=== PATIENT | female | born 1980 | race Caucasian/White ===

== ENCOUNTER → 2022-07-19 15:41 | Outpatient (CLI) | payer OTHER, SELFPAY ==
--- NOTE | ~2022-07-19 | MM_ITS ---
EXAMINATION: MM screening anamika BI w kimmy HISTORY: Screening mammogram TECHNIQUE: Craniocaudal and mediolateral oblique 3-D tomosynthesis images were obtained and synthetic 2-D images were generated. CAD analysis was submitted and interpreted. COMPARISON: bilateral screening mammogram examinations BREAST PARENCHYMAL COMPOSITION: The breasts are extremely dense, which lowers the sensitivity of mamm ography. FINDINGS: There is no evidence of suspicious mass, calcification, or architectural distortion to sugg est malignancy in either breast. There has been no suspicious interval change. IMPRESSION: 1. No mammographic evidence of malignancy. 2. Recommend routine screening mammography in one year. BI-RADS Category 1: Negative Reviewed, dictated and finalized at location A. 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
== END ==
PROVIDERS: PCP Obstetrics & Gynecology; Visit Provider Obstetrics & Gynecology
DX: Z12.31 Encounter for screening mammogram for malignant neoplasm of breast (principal)
CPT/HCPCS: 77063; 77067

== ENCOUNTER 2023-04-27 10:17 | Emergency (ER) | payer OTHER, SELFPAY ==
[2023-04-27 10:30] VITALS: BP 130/93; PULSE 66; RESP 16; TEMP 36.6; O2SAT 100
--- NOTE | 2023-04-27 10:30 | ED.URI ---
HPI - URI/Sore Throat General Chief Complaint: Upper Respiratory Infection Stated Complaint: COUGH/RIB PAIN Time Seen by Provider: 04/27/23 10:31 Source: patient Mode of arrival: ambulatory Limitations: no limitations History of Present Illness HPI Narrative: 42-year-old female presented for complaint of cough for 1 month. Now with left lower rib pain with coughing or deep breath. Denies sob, wheezing, n/v/d/f/c. Not taking anything for symptoms. Related Data Home Medications Medication Instructions Recorded Confirmed atorvastatin 10 mg tablet 10 mg PO DAILY 02/19/23 04/27/23 buspirone 10 mg tablet 10 mg PO BID 02/19/23 04/27/23 escitalopram oxalate 20 mg tablet 20 mg PO DAILY 02/19/23 04/27/23 metoprolol tartrate 50 mg tablet 50 mg PO BID 02/19/23 04/27/23 Allergies Allergy/AdvReac Type Severity Reaction Status Date / Time Sulfa (Sulfonamide Allergy Mild Itching Verified 04/27/23 10:36 Antibiotics) acetaminophen Allergy Unknown Itching Verified 04/27/23 10:36 oxycodone Allergy Unknown Itching Verified 04/27/23 10:36 Review of Systems Review of Systems: CONSTITUTIONAL: Denies body aches, fever, chills, or sweats. EYES: Denies visual changes, redness, or discharge. ENT: Denies rhinorrhea, congestion, sore throat, or otalgia. CARDIOVASCULAR: Denies chest pain, palpitations, or edema. RESPIRATORY: Reports cough, denies sob, wheezing. GASTROINTESTINAL: Denies abdominal pain, nausea, vomiting, or diarrhea. GENITOURINARY: Denies dysuria or hematuria. SKIN: Denies rash, itching, or wounds. MUSCULOSKELETAL: Denies back pain, joint pain, or myalgia. NEUROLOGIC: Denies headache, numbness, tingling, or weakness. All systems reviewed & are unremarkable except as noted in HPI and below PMFSH Past Medical History Medical History Abnormal Pap smear of cervix 01/20/12 ascus hpv neg Endometriosis History of hysterosalpingogram (01/25/12) occluded left tube History of in vitro fertilization Hypercholesteremia Hypertension Infertility x2 Screening mammogram, encounter for Surgical History Surgical History History of dilation and curettage 08/22/03 hscope d&c/laparotomy/LSO--endometriosis, large lt ovarian mass History of laparotomy 08/22/03 hscope d&c/laparotomy/LSO--endometriosis, large lt ovarian mass History of left salpingo-oophorectomy 08/22/03 hscope d&c/laparotomy/LSO--endometriosis, large lt ovarian mass History of ovarian cystectomy (09/25/12) RA lscope rt ovarian cystectomy/chromopertubation--endometriosis, endosalpingiosis, mesothelial hyperplasia, hemorrhagic corpus luteum cyst Family History Family History Mother Breast cancer Grandparent Breast cancer maternal grandmother Osteoporosis maternal grandmother Father Malignant tumor of urinary bladder Social History Social History Smoking status: Never smoker Second hand tobacco smoke exposure: No Alcohol intake: current Drinks per week: 2 Substance use: never Substance use type: does not use Lack of Transportation: No Lack of Food: Never True Current Housing: I Have Housing Concerned About Future Housing: No Difficulty Paying Gas/Electric Bills: No Difficulty Paying for Meds: No Currently Unemployed: No Education: Master's Degree or Higher Difficulty w/ Childcare or Family Care: No Living arrangements: other Additional living arrangements comments: Occupation/Education: occupation 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
== END 2023-04-27 10:50 | disposition home or self-care (01) ==
PROVIDERS: Emergency Provider Nurse Practitioner Family; PCP Family Medicine
DX: J40 Bronchitis, not specified as acute or chronic (principal); R07.81 Pleurodynia; N80.9 Endometriosis, unspecified; E78.00 Pure hypercholesterolemia, unspecified; I10 Essential (primary) hypertension
CPT/HCPCS: 99213; G0463

== ENCOUNTER 2023-05-14 17:04 | Emergency (ER) | payer OTHER, SELFPAY ==
--- NOTE | ~2023-05-14 | XR_ITS ---
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 RESULT: Lines, tubes, and devices: None. Lungs and pleura: Clear. Cardiomediastinal silhouette: Stable. Other: No acute osseous or upper abdominal finding. IMPRESSION: No acute cardiopulmonary process. Reviewed, dictated and finalized at location K. 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
[2023-05-14 17:11] VITALS: BP 127/85; PULSE 69; RESP 16; TEMP 36.9; O2SAT 99
--- NOTE | 2023-05-14 17:52 | ED.GENADULT ---
HPI - General Adult General Chief complaint: Upper Respiratory Infection Stated complaint: Cough Source: patient Mode of arrival: ambulatory Limitations: no limitations History of Present Illness HPI narrative: Patient presents for evaluation of cough. She was evaluated here on 04/27/2023 for a cough that had been there for a month prior to presentation. She was given prescriptions for Augmentin, prednisone, and Tessalon Perles. None of the medications seem to help. She reports persistence of her symptoms since that time. During some of her coughing episodes she feels short of breath. Her informed her that her cough has a seal-like quality to it. She denies any fever, chills, sore throat, otalgia, nausea, vomiting, diarrhea. She does not smoke. no exposure to secondhand smoke. She does not use marijuana. No leg swelling. No personal or family history of DVT or PE. She has on a oral contraceptive which she believes is estrogen-based. Related Data Home Medications Medication Instructions Recorded Confirmed atorvastatin 10 mg tablet 10 mg PO DAILY 02/19/23 04/27/23 buspirone 10 mg tablet 10 mg PO BID 02/19/23 04/27/23 escitalopram oxalate 20 mg tablet 20 mg PO DAILY 02/19/23 04/27/23 metoprolol tartrate 50 mg tablet 50 mg PO BID 02/19/23 04/27/23 Allergies Allergy/AdvReac Type Severity Reaction Status Date / Time Sulfa (Sulfonamide Allergy Mild Itching Verified 05/14/23 17:15 Antibiotics) acetaminophen Allergy Unknown Itching Verified 05/14/23 17:15 oxycodone Allergy Unknown Itching Verified 05/14/23 17:15 Review of Systems Review of Systems: CONSTITUTIONAL: Denies fever, chills, or sweats. EYES: Denies visual changes, redness, or discharge. ENT: Denies rhinorrhea, congestion, sore throat, or otalgia. CARDIOVASCULAR: Denies chest pain, palpitations, or edema. RESPIRATORY: Reports cough with periods of shortness of breath during coughing episodes. GASTROINTESTINAL: Denies abdominal pain, nausea, vomiting, or diarrhea. GENITOURINARY: Denies dysuria or hematuria. SKIN: Denies rash or itching. MUSCULOSKELETAL: Denies back pain, joint pain, or myalgia. NEUROLOGIC: Denies headache, numbness, dizziness, or weakness. PSYCHIATRIC: Denies anxiety or depression. PMFSH Past Medical History Medical History Abnormal Pap smear of cervix 01/20/12 ascus hpv neg Endometriosis History of hysterosalpingogram (01/25/12) occluded left tube History of in vitro fertilization Hypercholesteremia Hypertension Infertility x2 Screening mammogram, encounter for Surgical History Surgical History History of dilation and curettage 08/22/03 hscope d&c/laparotomy/LSO--endometriosis, large lt ovarian mass History of laparotomy 08/22/03 hscope d&c/laparotomy/LSO--endometriosis, large lt ovarian mass History of left salpingo-oophorectomy 08/22/03 hscope d&c/laparotomy/LSO--endometriosis, large lt ovarian mass History of ovarian cystectomy (09/25/12) RA lscope rt ovarian cystectomy/chromopertubation--endometriosis, endosalpingiosis, mesothelial hyperplasia, hemorrhagic corpus luteum cyst Family History Family History Mother Breast cancer Grandparent Breast cancer maternal grandmother Osteoporosis maternal grandmother Father Malignant tumor of urinary bladder Social History Social History Smoking status: Never smoker Second hand tobacco smoke exposure: No Alcohol intake: current Drinks per week: 2 Substance use: never Substance use type: does not use Lack of Transportation: No Lack of Food: Never True Current Housing: I Have Housing Concerned About Future Housing: No Difficulty Paying Gas/Electric Bills: No Difficulty Paying for Meds:
== END 2023-05-14 17:53 | disposition home or self-care (01) ==
PROVIDERS: Emergency Provider Nurse Practitioner; PCP Family Medicine
DX: R05.3 Chronic cough (principal); N80.9 Endometriosis, unspecified; E78.00 Pure hypercholesterolemia, unspecified; I10 Essential (primary) hypertension
CPT/HCPCS: 71046; 99213; G0463

== ENCOUNTER 2024-11-05 15:22 | Outpatient (CLI) | payer OTHER, SELFPAY ==
--- NOTE | ~2024-11-05 | MM_ITS ---
EXAMINATION: MM screening anamika BI w kimmy HISTORY: Screening TECHNIQUE: Craniocaudal and mediolateral oblique 3-D tomosynthesis images were obtained and synthetic 2-D images were generated. CAD analysis was submitted and interpreted. COMPARISON: Comparison to multiple prior studies sequentially, with oldest reviewed study dated 12/2018. BREAST PARENCHYMAL COMPOSITION: Dense: The breasts are extremely dense, which lowers the sensitivity of mammography. FINDINGS: There is a new focal asymmetry inferiorly in the right breast, posterior third, on MLO view only. The left breast is stable without evidence for malignancy. IMPRESSION: 1. New focal right breast asymmetry. 2. Additional mammographic views and possible breast ultrasound are recommended. BI-RADS Category 0: Incomplete: Needs additional imaging evaluation. Reviewed, dictated and finalized at location A. IMPRESSION: 1. New focal right breast asymmetry. 2. Additional mammographic views and possible breast ultrasound are recommended . BI-RADS Category 0: Incomplete: Needs additional imaging evaluation.
== END 2024-11-05 15:23 | disposition home or self-care (01) ==
LOC: MICIMG 15:22
PROVIDERS: PCP Family Medicine; Visit Provider Obstetrics & Gynecology
DX: Z12.31 Encounter for screening mammogram for malignant neoplasm of breast (principal); R92.8 Other abnormal and inconclusive findings on diagnostic imaging of breast
CPT/HCPCS: 77063; 77067

== ENCOUNTER 2024-11-26 07:55 | Outpatient (CLI) | payer OTHER, SELFPAY ==
--- NOTE | ~2024-11-26 | MMUS_ITS ---
EXAMINATION: MM diagnostic anamiak RT w kimmy, US breast RT complete HISTORY: Follow-up right breast asymmetry TECHNIQUE: Additional 3-D tomosynthesis images of the right breast were performed and synthetic 2-D i mages were generated. CAD analysis was submitted and interpreted. High resolution complete right [address] st ultrasound was performed. COMPARISON: Comparison to multiple prior studies sequentially, with oldest reviewed study dated 12/2018. BREAST PARENCHYMAL COMPOSITION: Dense: The breasts are extremely dense, which lowers the sensitivity of mammography. FINDINGS: MAMMOGRAPHIC FINDINGS: There are no suspicious masses, calcifications or architectural distortion in the right breast to sug gest malignancy. Focal asymmetry compresses with spot views, compatible with superimposed fibroglandu lar tissue. ULTRASOUND: Complete US of all 4 quadrants of the right breast/s and retroareolar region was reviewed. Normal het erogeneous echotexture without focal solid or cystic mass. IMPRESSION: 1. No evidence for malignancy in the right breast. 2. Routine yearly screening mammogram and regular clinical breast examination are recommended. BI-RADS Category 1: Negative Reviewed, dictated and finalized at location A. IMPRESSION: 1. No evidence for malignancy in the right breast. 2. Routine yearly screening mammogram and regular clinical breast examination a re recommended. BI-RADS Category 1: Negative
== END 2024-11-26 07:56 | disposition home or self-care (01) ==
LOC: MICIMG 07:55
PROVIDERS: PCP Family Medicine; Visit Provider Obstetrics & Gynecology
DX: N64.89 Other specified disorders of breast (principal)
CPT/HCPCS: 76641; 77061; 77065; G0279